=== PATIENT | female | born 1970 | race Caucasian/White ===

== ENCOUNTER 2016-12-28 21:54 | Emergency (ER) | payer BC ==
[2016-12-28] MEDS ORDERED: CETIRIZINE 10 MG TABLET PO STA (22:06)
[2016-12-28] MEDS ORDERED: DEXAMETHASONE 10 MG/ML VIAL IVP STA (22:06)
[2016-12-28] MEDS ORDERED: EPINEPHrine 1 MG/ML AMP IM STA (22:06)
[2016-12-28] MEDS ORDERED: diphenhydrAMINE INJ 50 MG/ML VIAL IVP STA (22:06)
[2016-12-28] MEDS ORDERED: SODIUM CHLORIDE 0.9% 1,000 ML IV ONE (22:07)
[2016-12-28] MEDS ORDERED: FAMOTIDINE 20 MG/50 ML 50 ML IV ONE ×2 (22:07→22:41)
[2016-12-28] MEDS ORDERED: RACEPINEPHRINE 2.25% NEB INH STA (22:09)
[2016-12-28] MEDS ORDERED: CETIRIZINE 10 MG TABLET ONE (22:13)
[2016-12-28] MEDS ORDERED: diphenhydrAMINE INJ 50 MG/ML VIAL ONE (22:13)
[2016-12-28] MEDS ORDERED: DEXAMETHASONE 10 MG/ML VIAL ONE (22:14)
[2016-12-28] MEDS ORDERED: EPINEPHrine 1 MG/ML VIAL ONE (22:14)
[2016-12-28] MEDS ORDERED: RACEPINEPHRINE 2.25% NEB INH ONE (22:15)
[2016-12-28] MEDS ORDERED: SODIUM CHLORIDE INHALATION 3 ML NEB ONE (22:16)
--- NOTE | 2016-12-28 22:47 | ED Physician Documentation ---
PD HPI SKIN - History obtained from History obtained from: Patient, Family (spouse) - History of Present Illness Timing - onset: How many minutes ago (30) Timing - details: Abrupt onset (she had had some crab and seafood for dinner shortly prior to onset of symptoms. No other unusual foods nor meds. Has had seafood in the past but infrequently. Had onset of general itching and hives that increased briskly to whole body. Also having feeling of swelling of lips and tongue/throat. Some dyspnea but no wheezing. No vomiting but feels shaky and nauseated. Feeling some lightheaded.) Location: Bodywide Quality / character: Itchy, Raised Associated symptoms: Facial swelling, Dyspnea. No: Fever, Myalgias Contributing factors: Exposed to food Similar symptoms before: Has not had sx before Recently seen: Not recently seen - Stated complaint Stated Complaint: ALLERGIC REACTION - Chief complaint Chief Complaint: Allergic Rx Review of Systems Constitutional: denies: Fever, Chills Nose: denies: Rhinorrhea / runny nose, Congestion Throat: denies: Sore throat Respiratory: denies: Cough GI: reports: Abdominal Pain (some cramping lower abd pains starting here in ED.) , Nausea. denies: Vomiting, Diarrhea : reports: Now EGA (30 weeks). denies: Dysuria, Frequency, Vaginal bleeding Skin: reports: Rash (hives diffusely just the past 1/2 hour or so.) Neurologic: reports: Generalized weakness. denies: Near syncope, Confused, Altered mental status PD PAST MEDICAL HISTORY - Past Medical History Cardiovascular: None Respiratory: None Neuro: None Endocrine/Autoimmune: None HEENT: None - Present Medications Home Medications: Ambulatory Orders Medication Instructions Recorded Confirmed Aspirin 81 mg PO DAILY 12/28/16 12/28/16 Cetirizine [ZyrTEC] 10 mg PO DAILY #15 tablet 12/28/16 Epinephrine 0.3 mg IJ ONCE PRN #1 auto.injct 12/28/16 Famotidine [Pepcid] 20 mg PO ONCE #15 tablet 12/28/16 Pnv No.122/Iron/Folic Acid 1 tab PO DAILY 12/28/16 12/28/16 [ Multi Tablet] - Allergies Allergies/Adverse Reactions: Allergies Allergy/AdvReac Type Severity Reaction Status Date / Time shellfish derived Allergy Respiratory Verified 12/28/16 22:02 PD ED PE NORMAL - Vitals Vital signs reviewed: Yes - General General: Alert and oriented X 3, Well developed/nourished, Other (looks shaky and anxious. Swelling of lips noted. Slight distortion of the voice but unlabored breathing. No wheezing. ) - HEENT HEENT: Moist mucous membranes, Other (lips with some swelling. Uvula has some edema. Tongue not obviously enlarged. ) - Neck Neck: Supple, no meningeal sign, No adenopathy - Cardiac Cardiac: RRR, No murmur - Respiratory Respiratory: No respiratory distress, Clear bilaterally - Abdomen Abdomen: Soft, Non tender, Other (gravid with bedside U/S showing IUP with good FHR and movement. ) - Back Back: No CVA TTP - Derm Derm: Other (diffuse hives without vesicles. ) - Extremities Extremities: No tenderness to palpate, Normal ROM s pain - Neuro Neuro: Alert and oriented X 3, No motor deficit, Normal speech - Vitals Vitals: Vital Signs - 24 hr 12/28/16 12/28/16 12/28/16 21:59 22:10 22:30 Temperature 35.2 C L Heart Rate 95 120 H 106 H Respiratory 20 18 20 Rate Blood Pressure 143/66 H O2 Saturation 100 98 12/28/16 12/28/16 12/28/16 22:50 23:00 23:20 Temperature Heart Rate 102 H 102 H 101 H Respiratory 20 18 19 Rate Blood Pressure 109/54 L 109/54 L 109/54 L O2 Saturation 99 98 97 12/28/16 12/29/16 12/29/16 23:30 00:15 00:30 Temperature Heart Rate 110 H 114 H 103 H Respiratory 20 20 19 Rate Blood Pressure 122/67 110/63 120/66 O2 Saturation 98 98 98 12/29/16 12/29/16 12/29/16 00:50 01:20 02:04 Temperature Heart Rate 102 H 104 H 105 H Respiratory 19 22 21 Rate Blood Pressure 110/65 112/69 104/63 O2 Saturation 98 99 97 Oxygen O2 Source Room air - Labs Labs: Laboratory Tests 12/28/16 12/28/16 22:05 23:30 Urine Color YELLOW Urine Clarity CLEAR Urine pH 6.5 Ur Specific [place] 1.010 Urine Protein NEGATIVE Urine Glucose (UA) NEGATIVE Urine Ketones TRACE Urine Occult Blood NEGATIVE Urine Nitrite NEGATIVE Urine Bilirubin NEGATIVE Urine Urobilinogen 0.2 (NORMAL) Ur Leukocyte Esterase NEGATIVE Urine RBC 0-5 Urine WBC 0-3 Ur Squamous Epith Cells MOD Squamous H Urine Bacteria Rare Urine Culture Comments NOT INDICATED Fibronectin NEGATIVE PD MEDICAL DECISION MAKING - ED course Complexity details: re-evaluated patient (Improving symptoms. However, did have anaphylactoid symptoms and with her too, would want to watch her for several hours to ensure is over the peak of reaction after meds wear off. She is having some lower abd cramps and L&D staff came to ED to evaluate. She is having some intermittent contractions and they will give some Terbutaline IM for that at direction of Dr. Guillermo. Will watch for allergic reaction symptoms and also to stay on tocomonitoring regarding contractions. ), considered differential (appears acute allergic reaction/anaphylactoid. Given IV fluids, IM epi, benadryl, famotidine, decadron and did get racemic epi to help with oral swelling. She is feeling improved with these treatments with less feeling of throat/lip swelling, and lessening hives. ), d/w patient, d/w search engine optimization consultant ( Dr. Guillermo, OB, who prefers patient stay in ED for monitoring. ) Departure - Departure Record reviewed to determine appropriate education?: Yes - Departure Disposition: 01 Home, Self Care Clinical Impression: Allergic urticaria, Uterine contractions during Anaphylactic reaction Qualifiers: Encounter type: initial encounter Qualified Code(s): T78.2XXA - Anaphylactic shock, unspecified, initial encounter Qualifiers: Weeks of gestation: 30 weeks Qualified Code(s): Z3A.30 - 30 weeks gestation of Condition: Stable Instructions: ED Anaphylaxis General, ED Allergic React Food Prescriptions: Epinephrine 0.3 mg IJ ONCE PRN #1 auto.injct PRN Reason: Anaphylaxis Famotidine [Pepcid] 20 mg PO ONCE #15 tablet Cetirizine [ZyrTEC] 10 mg PO DAILY #15 tablet Comments: Benadryl every 4-6 hours if needed for itching/hives. Cetirizine and Famotidine daily for 1-2 weeks. Follow up [employer] [facility] in the next couple of days. Discharge Date/Time: 12/29/16 02:25
[2016-12-28] MEDS ORDERED: TERBUTALINE 1 MG/ML VIAL SUBQ ONE (23:22)
[2016-12-28 23:44] LABS: BILIRUBIN,URINE NEGATIVE (NEGATIVE); PH,URINE 6.5 PH (5.0-7.5)
[2016-12-28 23:53] LABS: UR CULTURE IF IND NOT INDICATED; WBC,URINE 0-3 /HPF (0-5)
[2016-12-29 02:05] VITALS: BP 104/63
--- NOTE | 2016-12-29 02:05 | ED Physician Documentation ---
ED Addendum - Addendum Addendum: 12/29/16 02:03 46-year-old female with a shellfish anaphylactic reaction is treated in the emergency department with epinephrine Benadryl and dexamethasone and improves markedly.4 hours into her emergency department visit she is wanting to go home she has resolved the swelling in her lips and pharynx and has only some residual hand and feet swelling.I discussed with her taking Benadryl 25 mg every 6 hours for 2 days.She was evaluated in the emergency department by the obstetrical crew found some contractions that resolved. She will follow-up with them as previously planned.
== END 2016-12-29 02:25 | disposition home or self-care (01) ==
LOC: ED 21:54
DX: O26.893 Other specified pregnancy related conditions, third trimester (principal); T78.02XA Anaphylactic reaction due to shellfish (crustaceans), initial encounter; L50.0 Allergic urticaria; Z3A.30 30 weeks gestation of pregnancy; Z79.82 Long term (current) use of aspirin
CPT/HCPCS: 36415; 81001; 82731; 94640; 96372; 96374; 96375; 99284; A9270; J0171; 87086